=== PATIENT | male | born 1955 | race Two or more races ===

== ENCOUNTER → 2022-04-18 | Emergency (ER) | payer OTHER ==
[~2022-04-18] VITALS: Ht 172.7 cm; Wt 100.0 kg
[~2022-04-18] MED LIST: ADENOSINE 6 MG/2 ML INJ IV ONE; EPINEPHrine HCL 1 MG/10 ML SYRG IV ONE; SODIUM BICARBONATE 8.4 % INJ 50ML VIAL IV ONE; SODIUM BICARBONATE 8.4% INJ 50ML SYRINGE ONE
[2022-04-18 18:36] VITALS: BP 0/0
== END ==
LOC: EDBD 17:12 → ER 17:17
DX: I46.9 Cardiac arrest, cause unspecified (principal); E11.9 Type 2 diabetes mellitus without complications; R41.82 Altered mental status, unspecified; E78.5 Hyperlipidemia, unspecified; I10 Essential (primary) hypertension; I25.2 Old myocardial infarction; Z98.61 Coronary angioplasty status
CPT/HCPCS: 92950; 99285; J0153; J0171